=== PATIENT | male | born 1985 | race American Indian/Alaskan Native ===

== ENCOUNTER 2021-01-31 22:01 | Emergency (ER) | payer MEDICARE ==
[2021-02-01 10:51] VITALS: BP 126/77
== END 2021-02-01 11:27 | disposition home or self-care (01) ==
LOC: ED 22:01
DX: N28.9 Disorder of kidney and ureter, unspecified (principal); R11.2 Nausea with vomiting, unspecified; J45.909 Unspecified asthma, uncomplicated; Z98.890 Other specified postprocedural states; Z79.899 Other long term (current) drug therapy
CPT/HCPCS: 36415; 74176; 80053; 81001; 83690; 85025; 99284